=== PATIENT | male | born 1985 | race Caucasian/White ===

== ENCOUNTER 2023-12-30 11:14 | Emergency (ER) | payer OTHER, SELFPAY ==
--- NOTE | ~2023-12-30 | XR_ITS ---
EXAMINATION: XR foot LT min 3V DATE: 12/30/2023 11:43 INDICATION: Left foot injury. TECHNIQUE: 4 views of left foot were obtained. COMPARISON: None. FINDINGS: There is mild valgus. There is a bunionette deformity of the fifth digit. No fracture. Ther e is mild osteoarthritis of first metatarsophalangeal joint. IMPRESSION: 1. Mild hallux valgus. 2. Bunionette. 3. Mild osteoarthritis of first metatarsophalangeal joint. Reviewed, dictated and finalized at location A.
[2023-12-30 11:22] VITALS: BP 143/95; PULSE 69; RESP 20; TEMP 37; O2SAT 100
--- NOTE | 2023-12-30 11:36 | ED.LOWEXIN ---
HPI - Extremity Injury (Lower) General Chief Complaint: Extremity Injury, Lower Stated Complaint: Left Foot Injury Time Seen by Provider: 12/30/23 11:36 Source: patient Mode of arrival: ambulatory Limitations: no limitations History of Present Illness HPI Narrative: 38-year-old male presents with complaint of pain, swelling and tenderness to lateral aspect of left foot. Patient states he was taking cover off his boat, tripped and fell forward rolling toes. Injury happened yesterday, is concerned for fracture. Ambulatory with steady gait. All Systems reviewed and negative except as noted above. Related Data Home Medications Medication Instructions Recorded Confirmed No Home Medications 12/30/23 12/30/23 Allergies Allergy/AdvReac Type Severity Reaction Status Date / Time No Known Allergies Allergy Verified 12/30/23 11:30 Review of Systems Review of Systems: CONSTITUTIONAL: Denies fever, chills, or sweats. EYES: Denies visual changes, redness, or discharge. ENT: Denies rhinorrhea, congestion, sore throat, or otalgia. CARDIOVASCULAR: Denies chest pain, palpitations, or edema. RESPIRATORY: Denies cough or dyspnea. GASTROINTESTINAL: Denies abdominal pain, nausea, vomiting, or diarrhea. GENITOURINARY: Denies dysuria or hematuria. SKIN: Denies rash or itching. MUSCULOSKELETAL: Denies back pain, joint pain, or myalgia. Reports pain and swelling to lateral aspect of left foot. NEUROLOGIC: Denies headache, numbness, or weakness. PSYCHIATRIC: Denies anxiety or depression. All other systems reviewed are negative, except as documented in HPI. PMFSH Comments At time of signature, agree with nursing past medical, surgical, social and family history. There is no relevant family history pertinent to the presenting complaint. Exam Narrative: GENERAL: This is a well-nourished, well-developed patient, in no apparent distress. HEAD: normocephalic, atraumatic. EYES: PERRL. Sclera clear/white. Vision is grossly intact. EARS: External ears normal NOSE: External nose normal NECK: Neck supple, non-tender without lymphadenopathy, masses or thyromegaly. CARDIOVASCULAR: Regular rate and rhythm without murmurs, gallops, or rubs. RESPIRATORY: Clear to auscultation. Breath sounds equal bilaterally. No wheezes, rales, or rhonchi. SKIN: warm, Dry, intact with no suspicious lesions or rash, good texture and turgor. NEURO: awake, alert, and oriented to person, place and time. There were no obvious focal neurologic abnormalities. EXTREMITIES: Tenderness to lateral aspect left foot bunionette. mild erythema. no warmth concerning for infection Course Course Level of Care: Express Care Visit Vital Signs Vital signs: Vital Signs Temperature 37.0 C 12/30/23 11:22 Pulse Rate 69 12/30/23 11:22 Respiratory Rate 20 12/30/23 11:22 Blood Pressure 143/95 H 12/30/23 11:22 Pulse Oximetry 100 12/30/23 11:22 Oxygen Delivery Room Air 12/30/23 11:22 Temperature 37.0 C 12/30/23 11:22 Pulse Rate 69 12/30/23 11:22 Respiratory Rate 20 12/30/23 11:22 Blood Pressure 143/95 H 12/30/23 11:22 Pulse Oximetry 100 12/30/23 11:22 Oxygen Delivery Room Air 12/30/23 11:22 Reviewed MDM - Extremity Injury (Lower) MDM Narrative Medical decision making narrative: Discussed x-ray results with patient. Negative for fracture. Recommend Tylenol, ibuprofen, rest, elevation for sprain/contusion injury. Recommend follow-up with primary care physician if pain is not improving. Patient is aware of diagnosis, understands and agrees to treatment plan. Anticipatory guidance given. Patient agrees to follow-up as directed and is aware of reasons to seek care at the emergency department. Portions of this record may have been created with voice recognition software Discharge Plan Discharge Clinical Impression: Sprain of foot, left, Bunionette of left foot Patient Disposition: Home, Self-Care Condition: Stable
== END 2023-12-30 12:10 | disposition home or self-care (01) ==
PROVIDERS: Emergency Provider Nurse Practitioner Family; PCP Family Medicine
DX: S93.602A Unspecified sprain of left foot, initial encounter (principal); W01.0XXA Fall on same level from slipping, tripping and stumbling without subsequent striking against object, initial encounter; M21.622 Bunionette of left foot
CPT/HCPCS: 73630; 99213; G0463